=== PATIENT | female | born 2000 | race Caucasian/White ===

== ENCOUNTER 2018-07-09 18:46 | Emergency (ER) | payer OTHER ==
[~2018-07-09] VITALS: Ht 157.5 cm; Wt 63.5 kg
[~2018-07-09 18:46] MED LIST: CIPRO500 MG PO; NORCO 5-325 TA1 EACH PO; PYRIDIUM100 M1 PO
[2018-07-09] MEDS ORDERED: IBUPROFEN 800800 M1 PO (21:20)
[2018-07-09] MEDS ORDERED: ZOFRAN4 MG PO (21:20)
[2018-07-09 21:39] VITALS: BP 122/70
== END 2018-07-09 21:39 | disposition home or self-care (01) ==
LOC: M.ERS 18:46
DX: G43.909 Migraine, unspecified, not intractable, without status migrainosus (principal); J45.909 Unspecified asthma, uncomplicated; Z88.0 Allergy status to penicillin

== ENCOUNTER 2019-02-12 20:20 | Emergency (ER) | payer OTHER ==
[~2019-02-12] VITALS: Ht 157.5 cm; Wt 54.4 kg
[~2019-02-12 20:20] MED LIST changes: +IBUPROFEN 800800 M1 PO; +ZOFRAN4 MG PO
[2019-02-12 23:25] LABS: URINE BILIRUBIN NEGATIVE (Negative); URINE BLOOD NEGATIVE (Negative); URINE COLOR YELLOW; URINE GLUCOSE-RANDOM NEGATIVE (Negative); URINE KETONES NEGATIVE (Negative); URINE NITRITE-REFLEX NEGATIVE (Negative); URINE PROTEIN NEGATIVE (Negative); URINE UROBILINOGEN 0.2 E.U./dl (0.2-1.0)
[2019-02-12 23:27] LABS: URINE CLARITY SL CLOUDY; URINE LEUKOCYTES-REFLEX 2+ (Negative)
[2019-02-12 23:32] LABS: BACTERIA-REFLEX >30 Many /HPF (None Seen); CASTS None Seen /LPF (None Seen); CRYSTALS None Seen /LPF (None Seen); MUCUS 0-3 Light strn/LPF (None Seen); SQUAMOUS >10 Many /LPF (0-3); URINE RBC 3-10 Few /HPF (0-2); URINE WBC-REFLEX >25 Many /HPF (0-5); WBC CLUMPS Few (None Seen)
[2019-02-13] MEDS ORDERED: VALTREX 500 MG500 M1 PO (00:05)
[2019-02-13] MEDS ORDERED: LIDOCAINE 2%2 %/5 GM TOP (00:05)
[2019-02-13 00:21] VITALS: BP 126/69
[2019-02-15 19:06] LABS: HSV 1 DNA Positive (Negative); HSV 2 DNA Negative (Negative)
== END 2019-02-13 00:23 | disposition home or self-care (01) ==
LOC: M.ERS 20:20
PROVIDERS: Personal Emergency Response Attendant
DX: B00.9 Herpesviral infection, unspecified (principal); G43.909 Migraine, unspecified, not intractable, without status migrainosus; J45.909 Unspecified asthma, uncomplicated; Z88.0 Allergy status to penicillin